=== PATIENT | female | born 1985 | race Native Hawaiian/Other Pacific Islander ===

== ENCOUNTER 2022-11-15 10:26 | Outpatient (CLI) | payer OTHER | END 2022-11-15 18:59 | disposition home or self-care (01) | LOC: MAMMO 10:26 | PROVIDERS: ATTEND Internal Medicine | DX: R92.8 Other abnormal and inconclusive findings on diagnostic imaging of breast (principal) | CPT/HCPCS: G0279 ==

== ENCOUNTER 2023-05-09 08:41 | Outpatient (CLI) | payer OTHER | END 2023-05-09 22:13 | disposition home or self-care (01) | LOC: MAMMO 08:41 | PROVIDERS: ATTEND Internal Medicine | DX: R92.8 Other abnormal and inconclusive findings on diagnostic imaging of breast (principal) | CPT/HCPCS: G0279 ==